=== PATIENT | female | born 1960 | race Caucasian/White ===

== ENCOUNTER 2019-05-28 08:16 | Outpatient (CLI) | payer MEDICARE, SELFPAY ==
--- NOTE | 2019-05-28 08:22 | USCV_ITS ---
Natalia Jacobson Age: 59 Gender: F : 1960 Exam Date: 05/28/2019 08:37 Ordering Phys: Roddy Perez MD Technologist: Ivan Rosales Exam Location: [facility] [place] Indication: MVP BP: 110 / 60 HR: 61 Rhythm: Sinus Technical Quality: Good MEASUREMENTS (Male / Female) Normal Values 2D ECHO LV Diastolic Diameter PLAX 5.1 cm 4.2 - 5.9 / 3.9 - 5.3 cm LV Systolic Diameter PLAX 3.0 cm IVS Diastolic Thickness 0.7 cm 0.6 - 1.0 / 0.6 - 0.9 cm IVS Systolic Thickness 1.1 cm LVPW Diastolic Thickness 0.9 cm 0.6 - 1.0 / 0.6 - 0.9 cm LVPW Systolic Thickness 1.1 cm LVOT Diameter 2.0 cm LV Ejection Fraction 2D Teich 70.9 % LV Ejection Fraction MOD 2C 66.5 % LV Ejection Fraction 2C AL 65.6 % LA Diameter 3.3 cm LA Width 3.8 cm LA Height 4.4 cm RA Width 3.4 cm RA Height 4.1 cm M-MODE LV Diastolic Diameter MM 5.4 cm 4.2 - 5.9 / 3.9 - 5.3 cm LV Systolic Diameter MM 3.2 cm LV Ejection Fraction MM Teich 71.6 % IVS Diastolic Thickness MM 1.2 cm 0.6 - 1.0 / 0.6 - 0.9 cm IVS Systolic Thickness MM 1.4 cm LVPW Diastolic Thickness MM 1.1 cm 0.6 - 1.0 / 0.6 - 0.9 cm LVPW Systolic Thickness MM 1.5 cm RV Diastolic Diameter MM 1.9 cm Aortic Annulus Diameter 2.9 cm LA Ao Ratio MM 1.1 MV E Point Septal Separation 1.0 cm DOPPLER AV Peak Velocity 136.0 cm/s LVOT Peak Velocity 104.0 cm/s AV Area Cont Eq vti 2.6 cm squared AV Area Cont Eq pk 2.4 cm squared MV Area PHT 5.0 cm squared Mitral E to A Ratio 1.4 MV E' Velocity 105.0 cm/s TR Peak Velocity 191.0 cm/s TR Peak Gradient 14.6 mmHg Right Atrial Pressure 3.0 mmHg Pulmonary Artery Systolic Pressu 17.6 mmHg FINDINGS Left Ventricle Normal left ventricular size and systolic function, EF 67 %. No regional wall motion abnormalities. Right Ventricle The right ventricle is normal in size and function. Right Atrium The right atrium is normal in size. Left Atrium The left atrium is normal in size. Mitral Valve Thickened mitral valve. Mild to moderate mitral valve regurgitation. Leaflet morphology could not be identified well Aortic Valve Thickened aortic valve. Trace aortic valve regurgitation. Tricuspid Valve Mild tricuspid valve regurgitation. Estimated pulmonary artery peak systolic pressure of 18 mmHg Pulmonic Valve Pulmonic valve not well visualized. Pericardium Normal pericardium without effusion. Aorta Normal ascending aorta dimension. CONCLUSIONS Normal left ventricular size and systolic function, EF 67 %. No regional wall motion abnormalities. Thickened mitral valve. Mild to moderate mitral valve regurgitation. No obvious mitral valve prolapse. Thickened aortic valve. Trace aortic valve regurgitation. Mild tricuspid valve regurgitation. Estimated pulmonary artery peak systolic pressure of 18 mmHg. There is no pericardial effusion. There are no intracardiac masses. No previous study is available for comparison. Technically somewhat difficult study . Dr Deepali Payton MD FAC (Electronically Signed) Final Date: 29 May 2019 07:16 S
== END 2019-05-28 08:17 | disposition home or self-care (01) ==
LOC: RAD 08:19
PROVIDERS: Family Provider Family Medicine; PCP Family Medicine; Visit Provider Family Medicine
DX: I08.3 Combined rheumatic disorders of mitral, aortic and tricuspid valves (principal)
CPT/HCPCS: 93306

== ENCOUNTER → 2021-03-24 11:45 | Outpatient (BNVA) | payer MEDICARE, SELFPAY | PROVIDERS: PCP Family Medicine; Visit Provider Nurse Practitioner | DX: J44.9 Chronic obstructive pulmonary disease, unspecified (principal) | CPT/HCPCS: 71046 ==

== ENCOUNTER 2021-03-28 23:49 | Emergency (ER) | payer MEDICARE, SELFPAY ==
[2021-03-28 23:51] VITALS: BP 133/74; PULSE 71; RESP 16; TEMP 37.3; O2SAT 99; BMI 22.8
--- NOTE | 2021-03-28 23:51 | XRR_ITS ---
PROCEDURE INFORMATION: Exam: XR Left Ankle Exam date and time: 03/28/2021 11:51 PM Age: 60 years old Clinical indication: Injury or trauma; Fall; Blunt trauma; Ankle; Left TECHNIQUE: Imaging protocol: XR Left ankle. Views: 3 or more views. COMPARISON: No relevant prior studies available. FINDINGS: Bones/joints: Normal. Soft tissues: Normal. XR/XR ankle LT min 3V* [id number] IMPRESSION: No acute findings. Radiation Dose CTDIVOL = (mGy): DLP = (mGy-cm)
--- NOTE | 2021-03-28 23:51 | XRR_ITS ---
PROCEDURE INFORMATION: Exam: XR Right Ankle Exam date and time: 03/28/2021 11:51 PM Age: 60 years old Clinical indication: Injury or trauma; Fall; Blunt trauma; Ankle; Right TECHNIQUE: Imaging protocol: XR Right ankle. Views: 3 or more views. COMPARISON: No relevant prior studies available. FINDINGS: Bones/joints: Distal fibular metaphyseal subtle oblique mildly comminuted nondisplaced fracture with overlying soft tissue swelling. Soft tissues: See Bones/joints finding. XR/XR ankle RT min 3V* [id number] IMPRESSION: Distal fibular metaphyseal subtle oblique mildly comminuted nondisplaced fracture with overlying soft tissue swelling. Radiation Dose CTDIVOL = (mGy): DLP = (mGy-cm)
--- NOTE | 2021-03-29 00:16 | ED_ITS ---
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 She does have swelling to the right ankle she rates pain a 6 out of 10 currently denies any pain denies any other injuries with her fall. Associated symptoms: Deny chest pain, fever(s) or rash Review of Systems Const: Denies: fever(s), chills, body aches or change in appetite Eyes: Denies: blurry vision or eye discomfort ENMT: Denies: throat pain or dental pain Card: Denies: chest pain Resp: Denies: dyspnea GI: Denies: abdominal pain, nausea, vomiting or diarrhea : Denies: dysuria Musc: Reports: extremity pain Skin/Breast: Denies: rash Neuro: Denies: headache(s) Psych: Denies: depression Kannan/Lymph: Denies: easy bruising All/Imm: Denies: urticaria PFSH ED PFSH: Medical History COPD (chronic obstructive pulmonary disease) GERD (gastroesophageal reflux disease) Hypertension Lupus Raynauds disease Tachycardia Surgical History History of appendectomy History of cholecystectomy History of hysterectomy Family History Other Chronic kidney disease (CKD) Hypertension Lung disease Denies family history of Diabetes Dementia Cancer Stroke Social History Smoking and tobacco status: current every day smoker cigarettes Packs smoked per day: 1 Second hand smoke exposure: No Smoking risk assessment/counseling performed?: Yes Alcohol intake: never Desire information about alcohol rehabilitation?: No Counseling given: No Desire information about substance/drug rehabilitation?: No Counseling given: No Adopted: No Caregiver/support person: No Lives independently: Yes Household members: none Housing: House Marital status: / Number of children: 0 service: No Current occupational status: disabled Pets and animals: Yes Pets & animals: farm animals History of recent travel: No Current gender identity: Female Physical Exam Const: COMMON NORMALS: no acute distress, patient oriented x3 and healthy appearing HENMT: COMMON NORMALS: normocephalic and atraumatic HEAD & SCALP: normocephalic and atraumatic Eye: COMMON NORMALS: Equal, round and reactive pupils present and EOMs intact bilaterally PUPIL: Yes Equal, round and reactive pupils present Neck/C-Spine: COMMON NORMALS: full ROM and supple Chest: COMMONS NORMALS: normal inspection of the chest and normal palpation of entire chest wall Resp: COMMON NORMALS: normal respiratory effort, No retractions, No use of accessory muscles and clear to auscultation bilaterally AUSCULTATION: clear to auscultation bilaterally Cardio: COMMON NORMALS: regular rate, regular rhythm and No murmurs present (Cardio) RATE: regular rate RHYTHM: regular rhythm GI: COMMON NORMALS: Normal to inspection, nondistended, normoactive bowel sounds present, Soft to palpation, non-tender and no masses PALPATION: Yes Soft to palpation Extremity: COMMON NORMALS: full ROM NARRATIVE EXTREMITY EXAM: Swelling to right ankle with tenderness to lateral ankle slight tenderness to left ankle no obvious swelling or deformity distal pulses intact bilaterally Neuro: COMMON NORMALS: patient oriented x3, moves all extremities and no focal motor deficits Psych: COMMON NORMALS: mental status grossly normal, Normal thought process present and cooperative THOUGHT PROCESS: Normal thought process present Skin: COMMON NORMALS: no rashes or lesions noted and no wounds GENERAL SKIN EXAM: no rashes or lesions noted Course Vital Signs: Vital signs: Vital Signs Temperature 99.1 F 03/28/21 23:51 Pulse Rate 71 03/28/21 23:51 Respiratory Rate 16 03/28/21 23:51 Blood Pressure 133/74 03/28/21 23:51 Pulse Oximetry 99 03/28/21 23:51 MDM - Extremity (Nontraumatic) MDM Narrative: Medical decision making narrative: Patient presents with a right distal fibula fracture from a fall x-ray of her left ankle shows no acute abnormality patient is able to bear weight on that side as well. Patient placed in a splint is to use crutches and be nonweightbearing on the right ankle. She is to follow-up with orthopedics and return if worsening she understands agrees to plan. Imaging Data^: xr r ankle: Attestation: I personally reviewed and interpreted this imaging study as follows: My impression: distal fibula fx xr L ankle: Attestation: I personally reviewed and interpreted this imaging study as follows: My impression: no acute fx Discharge Plan Discharge Patient Disposition: Home Clinical Impression: Fracture of distal end of fibula Qualifiers: Encounter type: initial encounter Fracture type: closed Fracture morphology: unspecified fracture morphology Laterality: right Qualified Code(s): S82.831A - Other fracture of upper and lower end of right fibula, initial encounter for closed fracture Condition: Stable Prescriptions: New hydrocodone-acetaminophen 5-325 mg tablet 1 tab PO Q6H PRN (Reason: pain) Qty: 14 RF: 0 No Action hydroxychloroquine 200 mg tablet 200 mg PO BID RF: 0 omeprazole magnesium 20 mg tablet,delayed release (DR/EC) 20 mg PO DAILY RF: 0 diltiazem HCl 120 mg capsule,extended release 12 hr 120 mg PO Q12H RF: 0 metoprolol succinate 50 mg tablet extended release 24 hr 50 mg PO DAILY RF: 0 gabapentin 100 mg capsule 100 mg PO DAILY RF: 0 Proair Digihaler 90 mcg/actuation aero powdr breath act w/sensor 90 mcg inhalation Q6H PRNRF: 0 Breo Ellipta 100-25 mcg/dose blister with device 1 inh inhalation DAILY RF: 0 Nitro-Bid 2 % ointment 1 inch transdermal Q6H RF: 0 aspirin 325 mg tablet,delayed release (DR/EC) 325 mg PO BID RF: 0 up4 Probiotics Women's 5 billion cell- 250 mg capsule PO RF: 0 promethazine-DM 6.25-15 mg/5 mL syrup 5 ml PO Q6H Qty: 120 RF: 0 Discharge Orders: Discharge ED (Routine); Ordered 03/29/21 Ordered By: Madai Meredith Referrals: Conner Emery DO [Physician] - 1-3 days Roddy Perez MD [Primary Care Provider] - Discharge Diet: Advance as tolerated Discharge Activity: Resume usual activity Patient Instructions: Ankle Fracture (ED), Opioid Safety Coding Level of Care Code ED Installation Specialist for Chg Fwd Exam Comprehensive
[2021-03-29 00:41] VITALS: BP 164/103; PULSE 63; RESP 18; O2SAT 99
[2021-03-29] MEDS: HYDROcodone-acetaminophen 5-325 mg Tablet 1 TAB PO (00:44)
[2021-03-29 02:29] VITALS: BP 164/103; PULSE 63; RESP 18; O2SAT 99
--- NOTE | 2021-03-30 09:26 | DCPLANNER ---
registration manager had message to schedule a follow up appointment for patient with ortho. registration manager called the ortho clinic, spoke with Aura, gave clinic patients information. registration manager was told that patients information will be printed and reviewed. Clinic will call patient with appointment information.
--- NOTE | 2021-04-20 06:40 | DCPLANNER ---
Patient had a follow up appointment scheduled for 03.31.[address] Snow at [facility] - patient did attend appointment.
== END 2021-03-29 02:29 | disposition home or self-care (01) ==
PROVIDERS: Emergency Provider Emergency Medicine; PCP Family Medicine
DX: S82.831A Other fracture of upper and lower end of right fibula, initial encounter for closed fracture (principal); Z79.82 Long term (current) use of aspirin; J44.9 Chronic obstructive pulmonary disease, unspecified; I10 Essential (primary) hypertension; F17.210 Nicotine dependence, cigarettes, uncomplicated; X50.1XXA Overexertion from prolonged static or awkward postures, initial encounter
CPT/HCPCS: 29505; 73610; 99283

== ENCOUNTER 2021-03-31 15:11 | Outpatient (CLI) | payer MEDICARE, SELFPAY | END 2021-03-31 15:12 | disposition home or self-care (01) | LOC: SPT 15:13 | PROVIDERS: PCP Family Medicine; Visit Provider Orthopaedic Surgery | DX: Z46.89 Encounter for fitting and adjustment of other specified devices (principal) | CPT/HCPCS: 97760; L4361 ==

== ENCOUNTER → 2021-04-07 13:26 | Outpatient (BNVA) | payer MEDICARE, SELFPAY | PROVIDERS: PCP Family Medicine; Visit Provider Orthopaedic Surgery | DX: S82.831D Other fracture of upper and lower end of right fibula, subsequent encounter for closed fracture with routine healing (principal); X58.XXXD Exposure to other specified factors, subsequent encounter | CPT/HCPCS: 73610 ==

== ENCOUNTER → 2021-04-27 09:23 | Outpatient (BNVA) | payer MEDICARE, SELFPAY | PROVIDERS: PCP Family Medicine; Visit Provider Orthopaedic Surgery | DX: S82.831D Other fracture of upper and lower end of right fibula, subsequent encounter for closed fracture with routine healing (principal); X58.XXXD Exposure to other specified factors, subsequent encounter | CPT/HCPCS: 73610 ==

== ENCOUNTER → 2021-08-11 11:14 | Outpatient (BNVA) | payer MEDICARE, SELFPAY | PROVIDERS: PCP Family Medicine; Visit Provider Orthopaedic Surgery | DX: S82.839D Other fracture of upper and lower end of unspecified fibula, subsequent encounter for closed fracture with routine healing (principal); X58.XXXD Exposure to other specified factors, subsequent encounter; F17.210 Nicotine dependence, cigarettes, uncomplicated | CPT/HCPCS: 73610; 99212 ==

== ENCOUNTER 2021-10-03 14:46 | Emergency (ER) | payer MEDICARE, SELFPAY ==
[2021-10-03 15:18] VITALS: BP 152/87; PULSE 61; RESP 14; TEMP 36.9; O2SAT 99; BMI 23.6
--- NOTE | 2021-10-03 16:38 | XRR_ITS ---
PROCEDURE INFORMATION: Exam: XR Right Ankle Exam date and time: 10/03/2021 5:04 PM Age: 61 years old Clinical indication: Injury or trauma; Fall; Blunt trauma; Ankle; Right; Additional info: Right ankle injury from fall on steps TECHNIQUE: Imaging protocol: XR Right ankle. Views: 3 or more views. COMPARISON: CR (LOW EXM, ) 03/29/2021 12:14 AM FINDINGS: Bones/joints: Previously noted oblique distal fibular fracture line is barely visible suggesting interval healing. No change in alignment. No new displaced fracture or dislocation however superimposed acute on chronic injury would be difficult to exclude in this setting. Soft tissues: Mild lateral soft tissue swelling, improved since prior exam. Other findings: Three views submitted. Most recent exam 08/11/2021 images are not available for comparison. XR/XR ankle RT min 3V* [id number] IMPRESSION: No acute displaced fractures. Healed/healing fracture or in the distal fibular as described. See discussion above.
--- NOTE | 2021-10-03 16:41 | ED_ITS ---
HPI - Extremity Problem General: Chief complaint: Extremity Injury, Lower Stated complaint: right leg injury from fall Time Seen by Provider: 10/03/21 16:18 History of Present Illness: Patient is a 61-year-old female comes to the ED with right ankle injury. Injury occurred just prior to arrival. Patient says she was walking outside and on the last 2 steps on her front porch and slipped causing her to fall and twist her right ankle. She now has pain on the lateral right side of ankle. It hurts with any weightbearing. Pain is rated a 7 out of 10. Mild swelling to right lateral ankle. Denies any other injuries. Denies head trauma or loss of consciousness fall. Associated symptoms: Deny chest pain, fever(s) or rash Review of Systems Const: Denies: fever(s), chills or fatigue Eyes: Denies: change in vision or eye discomfort ENMT: Denies: throat pain, odynophagia, nasal discharge or nasal congestion Card: Denies: chest pain, palpitations, edema, swelling of feet/ankles, dyspnea on exertion or orthopnea Resp: Denies: dyspnea, productive cough or non-productive cough GI: Denies: abdominal pain, nausea, vomiting, diarrhea, constipation or hematochezia : Denies: flank pain, dysuria or hematuria Musc: Reports: extremity pain (Right ankle), extremity swelling (Right ankle) and limited range of motion (Right ankle); Denies: neck pain or back pain Skin/Breast: Denies: rash or new lesions Neuro: Denies: headache(s), numbness in extremities or weakness in extremities PFS ED PFSH: Medical History COPD (chronic obstructive pulmonary disease) GERD (gastroesophageal reflux disease) Hypertension Lupus Raynauds disease Tachycardia Surgical History History of appendectomy History of cholecystectomy History of hysterectomy Family History Other Chronic kidney disease (CKD) Hypertension Lung disease Denies family history of Diabetes Dementia Cancer Stroke Social History Smoking and tobacco status: current every day smoker cigarettes Packs smoked per day: 1 Second hand smoke exposure: No Smoking risk assessment/counseling performed?: Yes Alcohol intake: never Desire information about alcohol rehabilitation?: No Counseling given: No Desire information about substance/drug rehabilitation?: No Counseling given: No Adopted: No Caregiver/support person: No Lives independently: Yes Household members: none Housing: House Marital status: / Number of children: 0 service: No Current occupational status: disabled Pets and animals: Yes Pets & animals: farm animals History of recent travel: No Current gender identity: Female Physical Exam Const: COMMON NORMALS: no acute distress, patient oriented x3, healthy appearing and alert GENERAL APPEARANCE: cooperative and comfortable HENMT: COMMON NORMALS: normocephalic HEAD & SCALP: normocephalic MOUTH: Normal oral and palatal mucosa present THROAT: posterior oropharynx normal and uvula midline Neck/C-Spine: COMMON NORMALS: supple GENERAL: Yes normal visual inspection Resp: COMMON NORMALS: normal respiratory effort, No retractions, No use of accessory muscles and clear to auscultation bilaterally AUSCULTATION: clear to auscultation bilaterally Cardio: COMMON NORMALS: regular rate, regular rhythm, S1 normal heart sound present, S2 normal heart sound present, No gallops present (Cardio), No clicks present (Cardio), No murmurs present (Cardio) and Peripheral pulses 2+ throughout RATE: regular rate RHYTHM: regular rhythm HEART SOUNDS: S1 normal heart sound present and S2 normal heart sound present PERIPHERAL PULSES: Peripheral pulses 2+ throughout GI: COMMON NORMALS: Normal to inspection, nondistended, normoactive bowel sounds present, Soft to palpation, non-tender and no masses PALPATION: Yes Soft to palpation : COMMON NORMALS: Yes no CVA tenderness BLADDER/KIDNEY EXAM: Yes no CVA tenderness Back/Pelvis: COMMON NORMALS: no CVA tenderness Extremity: NARRATIVE EXTREMITY EXAM: Right ankle?mild swelling noted to lateral aspect. Tenderness over lateral malleolus. No visible deformity or ecchymosis noted. Neurovascular intact distally. Limited range of motion due to pain. GENERAL: Yes normal exam except as noted Neuro: COMMON NORMALS: patient oriented x3 and moves all extremities SENSORIUM/ORIENTATION: Yes alert Skin: GENERAL SKIN EXAM: dry skin Course Vital Signs: Vital signs: Vital Signs Temperature 98.4 F 10/03/21 15:18 Pulse Rate 61 10/03/21 15:18 Respiratory Rate 14 10/03/21 15:18 Blood Pressure 152/87 10/03/21 15:18 Pulse Oximetry 99 10/03/21 15:18 MDM - Extremity (Nontraumatic) Medical Decision Making Patient is a 61-year-old female comes to the ED with right ankle injury. Vitals are stable. Exam showed some mild swelling and tenderness over lateral malleolus of the right ankle. Neurovascular tact distally. X-ray of right ankle showed no acute fractures or findings. Patient diagnosed with ankle sprain and strain and was discharged home. She was told to follow-up with her PCP in the next week for reevaluation. Return to ED precautions given. Patient is to agree with plan. Lab Data Radiology Impressions Ankle X-Ray 10/03/21 16:38 IMPRESSION: No acute displaced fractures. Healed/healing fracture or in the distal fibular as described. See discussion above. Discharge Plan Discharge Patient Disposition: Home Clinical Impression: Ankle sprain and strain Condition: Stable Prescriptions: No Action hydroxychloroquine 200 mg tablet 200 mg PO BID 0RF omeprazole magnesium 20 mg tablet,delayed release (DR/EC) 20 mg PO DAILY 0RF diltiazem HCl 120 mg capsule,extended release 12 hr 120 mg PO Q12H 0RF metoprolol succinate 50 mg tablet extended release 24 hr 50 mg PO DAILY 0RF gabapentin 100 mg capsule 100 mg PO DAILY 0RF Proair Digihaler 90 mcg/actuation aero powdr breath act w/sensor 90 mcg inhalation Q6H PRN0RF Breo Ellipta 100-25 mcg/dose blister with device 1 inh inhalation DAILY 0RF Nitro-Bid 2 % ointment 1 inch transdermal Q6H 0RF Rx Instructions: allow nitrate-free interval of approx. 10-12 hrs per 24-hour period aspirin 325 mg tablet,delayed release (DR/EC) 325 mg PO BID 0RF up4 Probiotics Women's 5 billion cell- 250 mg capsule PO 0RF promethazine-DM 6.25-15 mg/5 mL syrup 5 ml PO Q6H Qty: 120 0RF (DME) Walking Boot See Rx Instructions .Route .MEDSUPPLY Qty: 1 0RF Rx Instructions: As directed hydrocodone-acetaminophen 5-325 mg tablet 1 tab PO Q6H PRN (Reason: pain) 7 Days Qty: 14 0RF Discharge Orders: Discharge ED (Routine); Ordered 10/03/21 Ordered By: Dominic Vasquez Referrals: Roddy Perez MD [Primary Care Provider] - Discharge Diet: Regular Discharge Activity: Increase activity as tolerated Patient Instructions: Ankle Sprain (DC) Activity Restrictions/Additional Instructions: Follow-up with medical provider as directed in the next 7 to 10 days reevaluation. Limit weightbearing for the next couple days to allow for healing. Rest ice and elevate ankle. Take [id number] Tylenol or ibuprofen for pain. Return to the ER or your medical provider if condition worsens. Please read and understand discharge instructions. Thank you for choosing [facility] for your healthcare needs today. Dina hoffman realize this is an emergency room and that we are providing you with a medical screening exam and this may not be complete and all inclusive of all the testing and or work up that you may need to determine your ailment or severity of your illness. It is very important that you follow up as instructed or that you return to the Emergency Department should you have concerns or if your condition changes or worsens in any way. Coding Level of Care Code ED Sales Promotion Representative for Augustine Saleem Exam Comprehensive
[2021-10-03] MEDS: HYDROcodone-acetaminophen 7.5-325 mg Tablet 1 TAB PO (16:46)
== END 2021-10-03 18:20 | disposition home or self-care (01) ==
PROVIDERS: Emergency Provider Physician Assistant; PCP Family Medicine
DX: S93.401A Sprain of unspecified ligament of right ankle, initial encounter (principal); S96.911A Strain of unspecified muscle and tendon at ankle and foot level, right foot, initial encounter; W10.8XXA Fall (on) (from) other stairs and steps, initial encounter; Y92.008 Other place in unspecified non-institutional (private) residence as the place of occurrence of the external cause
CPT/HCPCS: 73610; 99283

== ENCOUNTER 2021-12-03 12:54 | Outpatient (CLI) | payer MEDICARE, SELFPAY ==
--- NOTE | 2021-12-03 13:13 | XR_ITS ---
WS: [id number] DEXA (DUAL ENERGY X-RAY ABSORPTIOMETRY) Bone mineral density was performed using a Kony machine. HISTORY: OSTEOPOROSIS/RECENT FX R LEG COMPARISON: None available. Lumbar spine BMD (L1-L4): 1.172 g/cm2 T score: -0.1 Z score: 1.2 Total hip BMD: Left: 0.836 g/cm2. T score: -1.4 Z score: -0.4 Right: 0.808 g/cm2. T score: -1.6 Z score: -0.6 10 year probability of a major osteoporotic fracture is 24.5%. XR/XR DEXA axial skeleton* [id number] IMPRESSION: OSTEOPENIA based upon the WHO classification for females.
== END 2021-12-03 12:55 | disposition home or self-care (01) ==
LOC: RAD 12:54
PROVIDERS: PCP Family Medicine; Visit Provider Internal Medicine Rheumatology
DX: M81.0 Age-related osteoporosis without current pathological fracture (principal); M85.80 Other specified disorders of bone density and structure, unspecified site
CPT/HCPCS: 77080

== ENCOUNTER → 2022-06-28 07:57 | Outpatient (BNVA) | payer MEDICARE, SELFPAY | PROVIDERS: PCP Family Medicine; Visit Provider Podiatrist Foot & Ankle Surgery | DX: L60.8 Other nail disorders (principal); I73.00 Raynaud's syndrome without gangrene | CPT/HCPCS: 99213 ==

== ENCOUNTER → 2022-07-05 13:48 | Outpatient (BNVA) | payer MEDICARE, SELFPAY | PROVIDERS: PCP Family Medicine; Visit Provider Podiatrist Foot & Ankle Surgery | DX: L60.8 Other nail disorders (principal); I73.00 Raynaud's syndrome without gangrene; I73.9 Peripheral vascular disease, unspecified | CPT/HCPCS: 99213 ==

== ENCOUNTER → 2022-08-10 08:38 | Outpatient (BNVA) | payer MEDICARE, SELFPAY | PROVIDERS: PCP Family Medicine; Visit Provider Nurse Practitioner Family | DX: J02.9 Acute pharyngitis, unspecified (principal) | CPT/HCPCS: 87071; 87880 ==

== ENCOUNTER → 2022-08-12 11:31 | Outpatient (BNVA) | payer MEDICARE, SELFPAY | PROVIDERS: PCP Family Medicine; Visit Provider Nurse Practitioner Family | DX: R19.7 Diarrhea, unspecified (principal) | CPT/HCPCS: 85025 ==

== ENCOUNTER → 2022-08-20 10:11 | Outpatient (BNVA) | payer MEDICARE, SELFPAY | PROVIDERS: PCP Family Medicine; Visit Provider Nurse Practitioner Family | DX: R19.7 Diarrhea, unspecified (principal) | CPT/HCPCS: 87506 ==

== ENCOUNTER → 2022-09-02 08:11 | Outpatient (BNVA) | payer MEDICARE, SELFPAY | PROVIDERS: PCP Family Medicine; Visit Provider Internal Medicine Rheumatology | DX: L94.9 Localized connective tissue disorder, unspecified (principal); L40.50 Arthropathic psoriasis, unspecified | CPT/HCPCS: 82565; 82570; 84156; 85025; 85651; 86160; 86255 ==

== ENCOUNTER → 2022-12-23 09:58 | Outpatient (BNVA) | payer MEDICARE, SELFPAY | PROVIDERS: PCP Family Medicine; Visit Provider Podiatrist Foot & Ankle Surgery | DX: L60.0 Ingrowing nail (principal); I73.9 Peripheral vascular disease, unspecified; L60.8 Other nail disorders; I73.00 Raynaud's syndrome without gangrene | CPT/HCPCS: 11750 ==

== ENCOUNTER → 2023-01-13 11:11 | Outpatient (BNVA) | payer MEDICARE, SELFPAY | PROVIDERS: PCP Family Medicine; Visit Provider Podiatrist Foot & Ankle Surgery | DX: I73.00 Raynaud's syndrome without gangrene (principal); I73.9 Peripheral vascular disease, unspecified | CPT/HCPCS: 99213 ==

== ENCOUNTER → 2023-04-26 08:27 | Outpatient (BNVA) | payer MEDICARE, SELFPAY | PROVIDERS: PCP Family Medicine; Visit Provider Internal Medicine Rheumatology | DX: L94.9 Localized connective tissue disorder, unspecified (principal); Z79.899 Other long term (current) drug therapy | CPT/HCPCS: 82565; 82570; 84156; 85025; 85651 ==

== ENCOUNTER → 2023-06-13 09:15 | Outpatient (BNVA) | payer MEDICARE, SELFPAY | PROVIDERS: PCP Family Medicine; Visit Provider Podiatrist Foot & Ankle Surgery | DX: I73.00 Raynaud's syndrome without gangrene (principal); I73.9 Peripheral vascular disease, unspecified; L60.3 Nail dystrophy | CPT/HCPCS: 99213 ==

== ENCOUNTER → 2023-12-27 08:35 | Outpatient (BNVA) | payer MEDICARE, SELFPAY | PROVIDERS: PCP Family Medicine; Visit Provider Family Medicine | DX: M32.9 Systemic lupus erythematosus, unspecified (principal); M35.9 Systemic involvement of connective tissue, unspecified | CPT/HCPCS: 82565; 82570; 84156; 85025; 85651; 86160; 86255 ==

== ENCOUNTER → 2024-07-31 10:31 | Outpatient (BNVA) | payer MEDICARE, SELFPAY | PROVIDERS: PCP Family Medicine; Visit Provider Clinical Nurse Specialist Adult Health | DX: J02.9 Acute pharyngitis, unspecified (principal) | CPT/HCPCS: 87071; 87400; 87880 ==

== ENCOUNTER → 2024-08-29 08:06 | Outpatient (BNVA) | payer MEDICARE, SELFPAY | PROVIDERS: PCP Family Medicine; Visit Provider Family Medicine | DX: L94.9 Localized connective tissue disorder, unspecified (principal) | CPT/HCPCS: 82565; 82570; 84156; 85025; 85651; 86160; 86255 ==

== ENCOUNTER → 2025-04-23 08:00 | Outpatient (BNVA) | payer MEDICARE, SELFPAY | PROVIDERS: PCP Family Medicine; Visit Provider Family Medicine | DX: Z79.899 Other long term (current) drug therapy (principal) | CPT/HCPCS: 82565; 82570; 84156; 85025; 85651; 86160; 86255 ==